=== PATIENT | female | born 1965 | race African-American/Black ===

== ENCOUNTER 2018-01-17 14:32 | Inpatient (IN) | payer SELFPAY ==
[2018-01-17] VITALS (16 sets, daily range): BP systolic 156–205; BP diastolic 79–145
[~2018-01-17] VITALS: Ht 175.3 cm; Wt 80.4 kg
[~2018-01-17 14:32] MED LIST: AMLO10TA4 PO; ASPI-1079 PO; ATOR20TA PO; HYDR-3927 GT; HYDR25TA PO; LISI-604 PO; MECL-109 PO
[2018-01-17 15:18] LABS: BASOPHILS % 0.7 % (0.0-2.0); EOSINOPHILS % 0.3 % (0.0-5.0); HEMATOCRIT. 40.8 % (36.0-48.0); HEMOGLOBIN. 14.1 g/dL (12.0-16.0); LYMPHOCYTES % 16.2 % (20.0-50.0); MEAN CORPUSCULAR HEMOGLOBIN 28.2 pg (28.0-32.0); MEAN CORPUSCULAR VOLUME 81.6 fL (81.0-99.0); MEAN PLATELET VOLUME 7.7 fl (7.4-10.4); MONOCYTES % 4.8 % (2.0-8.0); PLATELET 302 x1000/uL (130-400); RED CELL DISTRIBUTION WIDTH 13.1 % (11.6-14.6)
[2018-01-17 15:19] LABS: CHLORIDE 108 mEq/L (98-107)
[2018-01-17 15:20] LABS: PROTHROMBIN TIME 10.3 sec (9.4-11.6)
[2018-01-17 15:21] LABS: CLARITY URINE CLEAR (CLEAR); COLOR URINE YELLOW (YELLOW); KETONES URINE NEGATIVE (NEGATIVE); LEUKOCYTE ESTERASE URINE NEGATIVE (NEGATIVE); NITRITE URINE NEGATIVE (NEGATIVE); OCCULT BLOOD URINE TRACE (NEGATIVE); PH URINE 5.5 (4.5-8.0); PROTEIN URINE 1+ (NEGATIVE); SPECIFIC GRAVITY URINE 1.011 (1.005-1.030); UROBILINOGEN URINE 0.2 E.U./dL (0.2-1.0)
[2018-01-17 15:22] LABS: ETHANOL BLOOD < 10 mg/dL
[2018-01-17 15:43] LABS: *AMPHETAMINES SCREEN URINE NEGATIVE (NEGATIVE); *BARBITURATES SCREEN URINE NEGATIVE (NEGATIVE); METHADONE URINE SCREEN NEGATIVE (NEGATIVE); OPIATES URINE SCREEN NEGATIVE (NEGATIVE); PHENCYCLIDINE URINE SCREEN NEGATIVE (NEGATIVE)
[2018-01-17 15:44] LABS: *BENZODIAZEPINES SCREEN URINE NEGATIVE (NEGATIVE); *COCAINE SCREEN URINE NEGATIVE (NEGATIVE); CANNABINOID URINE SCREEN PRESUMTIVE POSITIVE (NEGATIVE)
[2018-01-17] MEDS ORDERED: NICARDIPINE 40MG/200ML PREMIX 200 ML IV PRN (17:30)
[2018-01-17] MEDS ORDERED: MANNITOL 20% (20GM/100ML) BAG 500ML PREMIX IV ONE (17:45)
[2018-01-17] MEDS ORDERED: PHENYTOIN SODIUM 500 MG in SODIUM CHLORIDE 0.9% 50 ML IV ONE (17:45)
[2018-01-17] MEDS ORDERED: DEXT 5%/LACTATED RINGERS 1,000 ML IV SCH ×2 (18:39→21:30)
[2018-01-17] MEDS ORDERED: ACETAMINOPHEN 650MG SUPP PR PRN (18:45)
[2018-01-17] MEDS ORDERED: DIPHENHYDRAMINE 50MG/ML VIAL IV PRN (18:45)
[2018-01-17] MEDS ORDERED: IPRATROPIUM/ALBUTEROL 0.5-3(2.5)MG/3ML NEB INH PRN (18:45)
[2018-01-17] MEDS ORDERED: ONDANSETRON HCL 4MG/2ML VIAL IV PRN (18:45)
[2018-01-17] MEDS ORDERED: NITROGLYCERIN 0.4MG TABLET SL SL PRN (18:45)
[2018-01-17] MEDS: FAMOTIDINE 20MG/2ML VIAL IV SCH (22:17)
[2018-01-17] MEDS: PHENYTOIN SODIUM 100MG/2ML VIAL IV SCH (22:17)
[2018-01-17] MEDS: NICARDIPINE 100 MG in SODIUM CHLORIDE 0.9% 60 ML IV PRN (22:20)
[2018-01-17] MEDS ORDERED: NICARDIPINE 100 MG in SODIUM CHLORIDE 0.9% 60 ML IV PRN (22:30)
[2018-01-17] MEDS ORDERED: POTASSIUM CHLORIDE INJ 20 MEQ in SODIUM CHLORIDE 0.9% 100 ML IV NR (22:30)
[2018-01-18] VITALS (95 sets, daily range): BP systolic 85–232; BP diastolic 31–151
[2018-01-18] MEDS: DEXAMETHASONE 4MG/ML 1ML VIAL IV SCH ×4 (00:38→18:19)
[2018-01-18] MEDS: PHENYTOIN SODIUM 100MG/2ML VIAL IV SCH (05:00)
[2018-01-18] MEDS: NICARDIPINE 100 MG in SODIUM CHLORIDE 0.9% 60 ML IV PRN ×2 (07:26→14:20)
[2018-01-18] MEDS: FAMOTIDINE 20MG/2ML VIAL IV SCH ×2 (08:23→21:46)
[2018-01-18] MEDS: HYDRALAZINE 20MG/ML VIAL IV PRN (11:31)
[2018-01-18] MEDS ORDERED: LABETALOL 5MG/ML SYR 20 MG/4 ML SYRINGE IV PRN (12:00)
[2018-01-18] MEDS: PHENYTOIN SODIUM EXTENDED 100MG CAPSULE PO SCH ×2 (13:56→21:51)
[2018-01-18] MEDS: AMLODIPINE 10MG TABLET PO SCH (14:20)
[2018-01-18] MEDS: HYDRALAZINE HCL 50MG TABLET PO SCH ×2 (15:59→21:52)
[2018-01-18] MEDS: LISINOPRIL 20MG TABLET PO SCH (21:49)
[2018-01-18] MEDS: METOPROLOL TARTRATE 100MG TABLET PO SCH (21:50)
[2018-01-19] VITALS (69 sets, daily range): BP systolic 80–172; BP diastolic 51–111
[2018-01-19 05:29] LABS: BASOPHILS % 0.1 % (0.0-2.0); HEMATOCRIT. 42.1 % (36.0-48.0); HEMOGLOBIN. 14.4 g/dL (12.0-16.0); LYMPHOCYTES % 11.9 % (20.0-50.0); MEAN CORPUSCULAR HEMOGLOBIN 28.1 pg (28.0-32.0); MEAN CORPUSCULAR VOLUME 82.4 fL (81.0-99.0); PLATELET 346 x1000/uL (130-400); RED BLOOD CELL COUNT 5.11 mill/uL (4.2-5.4); RED CELL DISTRIBUTION WIDTH 13.3 % (11.6-14.6)
[2018-01-19 05:58] LABS: CHLORIDE 105 mEq/L (98-107)
[2018-01-19] MEDS: DEXAMETHASONE 4MG/ML 1ML VIAL IV SCH (07:16)
[2018-01-19] MEDS: PHENYTOIN SODIUM EXTENDED 100MG CAPSULE PO SCH ×3 (07:16→21:39)
[2018-01-19] MEDS: HYDRALAZINE HCL 50MG TABLET PO SCH ×3 (07:20→21:40)
[2018-01-19] MEDS: HYDRALAZINE 20MG/ML VIAL IV PRN ×2 (07:59→18:07)
[2018-01-19] MEDS: FAMOTIDINE 20MG/2ML VIAL IV SCH ×2 (08:27→21:35)
[2018-01-19] MEDS: AMLODIPINE 10MG TABLET PO SCH (08:28)
[2018-01-19] MEDS: LISINOPRIL 20MG TABLET PO SCH ×2 (08:28→21:36)
[2018-01-19] MEDS: METOPROLOL TARTRATE 100MG TABLET PO SCH ×2 (08:28→21:37)
[2018-01-19] MEDS ORDERED: ATORVASTATIN CALCIUM 40MG TABLET PO SCH (21:00)
[2018-01-20] VITALS (10 sets, daily range): BP systolic 110–144; BP diastolic 59–91
[2018-01-20] MEDS: HYDRALAZINE HCL 50MG TABLET PO SCH ×2 (05:37→14:08)
[2018-01-20] MEDS: PHENYTOIN SODIUM EXTENDED 100MG CAPSULE PO SCH ×2 (05:39→14:07)
[2018-01-20 07:34] LABS: BASOPHILS % 0.3 % (0.0-2.0); EOSINOPHILS % 0.1 % (0.0-5.0); HEMATOCRIT. 41.2 % (36.0-48.0); HEMOGLOBIN. 13.9 g/dL (12.0-16.0); MEAN CORPUSCULAR HEMOGLOBIN 27.7 pg (28.0-32.0); MEAN CORPUSCULAR VOLUME 82.5 fL (81.0-99.0); MEAN PLATELET VOLUME 7.7 fl (7.4-10.4); MONOCYTES % 7.3 % (2.0-8.0); NEUTROPHILS % 58.3 % (40.0-76.0); PLATELET 332 x1000/uL (130-400); RED CELL DISTRIBUTION WIDTH 13.3 % (11.6-14.6)
[2018-01-20] MEDS: AMLODIPINE 10MG TABLET PO SCH (08:53)
[2018-01-20] MEDS: METOPROLOL TARTRATE 100MG TABLET PO SCH (08:53)
[2018-01-20] MEDS: LISINOPRIL 20MG TABLET PO SCH (08:53)
[2018-01-20 09:02] LABS: CHLORIDE 105 mEq/L (98-107)
[2018-01-20] MEDS ORDERED: FAMOTIDINE 20MG TABLET PO SCH (09:30)
[2018-01-20] MEDS ORDERED: POTASSIUM CHLORIDE 20MEQ TABLET SR PO SCH (12:45)
== END 2018-01-20 18:35 | disposition home or self-care (01) | DRG 44 ==
LOC: ER 15:42 → EDBEDREQ 17:53 → EDBEDREQSVC 17:53 → EDBEDREQTM 17:53 → ENRESERV 18:57 → MICUSO 21:03 → 5WST 01-20 02:11
PROVIDERS: ADMIT Internal Medicine; ATTEND Internal Medicine
DX: I61.0 Nontraumatic intracerebral hemorrhage in hemisphere, subcortical (principal); I10 Essential (primary) hypertension; E78.5 Hyperlipidemia, unspecified; E78.00 Pure hypercholesterolemia, unspecified; E87.6 Hypokalemia; F12.10 Cannabis abuse, uncomplicated; Z91.14 Patient's other noncompliance with medication regimen
CPT/HCPCS: 36415; 70450; 71045; 80048; 80053; 80061; 80305; 81003; 83036; 84484; 85025; 85610; 93005; 93970; 96365; 96375; 97110; 97116; 97162; 97165; 97535; 99291; C1893; G0482; J0360; J1100; J1165; J3480; J3490; J7050

== ENCOUNTER 2019-06-28 15:45 | Emergency (ER) | payer MEDICAID ==
[~2019-06-28] VITALS: Ht 175.3 cm; Wt 84.0 kg
[2019-06-28 16:01] VITALS: BP 116/68
== END 2019-06-28 18:45 | disposition home or self-care (01) ==
LOC: ER 15:45
DX: G57.92 Unspecified mononeuropathy of left lower limb (principal); Z86.73 Personal history of transient ischemic attack (TIA), and cerebral infarction without residual deficits; F12.90 Cannabis use, unspecified, uncomplicated
CPT/HCPCS: 99282

== ENCOUNTER 2019-11-18 16:25 | Emergency (ER) | payer MEDICAID ==
[~2019-11-18] VITALS: Ht 175.3 cm; Wt 88.0 kg
[~2019-11-18 16:25] MED LIST changes: -MECL-109 PO; +MECL-159 PO
[2019-11-18 21:26] VITALS: BP 125/70
== END 2019-11-18 21:26 | disposition home or self-care (01) ==
LOC: ER 16:25
DX: R04.0 Epistaxis (principal); I10 Essential (primary) hypertension; E78.5 Hyperlipidemia, unspecified; Z86.73 Personal history of transient ischemic attack (TIA), and cerebral infarction without residual deficits; F12.90 Cannabis use, unspecified, uncomplicated
CPT/HCPCS: 99283

== ENCOUNTER 2022-12-06 11:48 | Emergency (ER) | payer MEDICAID ==
[~2022-12-06] VITALS: Ht 170.2 cm; Wt 85.0 kg
[~2022-12-06 11:48] MED LIST changes: -LISI-604 PO; +LISI20TA31 PO
[2022-12-06] MEDS ORDERED: LIDOCAINE 5% PATCH TOP SCH (14:00)
[2022-12-06] MEDS ORDERED: ACETAMINOPHEN 325MG TABLET PO ONE (14:00)
[2022-12-06] MEDS ORDERED: ASPIRIN 81MG TABLET PO ONE (14:00)
[2022-12-06 15:42] LABS: CHLORIDE 107 mEq/L (98-107)
[2022-12-06] MEDS ORDERED: ASPIRIN 81MG TABLET PO NR (15:45)
[2022-12-06] MEDS ORDERED: ACETAMINOPHEN 325MG TABLET PO NR (15:45)
[2022-12-06 15:53] LABS: BASOPHILS % 0.4 % (0.0-2.0); EOSINOPHILS % 2.2 % (0.0-5.0); HEMATOCRIT. 42.1 % (36.0-48.0); HEMOGLOBIN. 14.1 g/dL (12.0-16.0); LYMPHOCYTES % 41.1 % (20.0-50.0); MEAN CORPUSCULAR HEMOGLOBIN 27.8 pg (28.0-32.0); MEAN CORPUSCULAR VOLUME 82.9 fL (81.0-99.0); MEAN PLATELET VOLUME 7.3 fl (7.4-10.4); MONOCYTES % 5.9 % (2.0-8.0); NEUTROPHILS % 50.4 % (40.0-76.0); PLATELET 386 x1000/uL (130-400); RED BLOOD CELL COUNT 5.07 mill/uL (4.2-5.4)
[2022-12-06] MEDS ORDERED: LIDO700A30 TP (16:04)
[2022-12-06] MEDS ORDERED: IBUP-2028 MT (16:04)
[2022-12-06] MEDS ORDERED: ACET-2708 MT (16:04)
[2022-12-06 16:07] VITALS: BP 129/69
== END 2022-12-06 16:29 | disposition home or self-care (01) ==
LOC: ER 11:48
DX: M25.511 Pain in right shoulder (principal); E78.00 Pure hypercholesterolemia, unspecified; I10 Essential (primary) hypertension; Z86.73 Personal history of transient ischemic attack (TIA), and cerebral infarction without residual deficits; F12.10 Cannabis abuse, uncomplicated; Z79.899 Other long term (current) drug therapy
CPT/HCPCS: 36415; 73030; 80053; 83880; 84484; 85025; 93005; 99285; Z7610; A4565

== ENCOUNTER 2024-07-16 10:03 | Emergency (ER) | payer MEDICAID ==
[~2024-07-16] VITALS: Ht 167.6 cm; Wt 85.0 kg
[~2024-07-16 10:03] MED LIST changes: +ACET-2708 MT; +IBUP-2028 MT; +LIDO700A30 TP; -MECL-159 PO; +MECL-299 PO
[2024-07-16 10:06] VITALS: O2SAT 98
[2024-07-16] MEDS: SODIUM CHLORIDE 0.9% 1,000 ML IV ONE (10:41)
[2024-07-16 11:01] LABS: BASOPHILS % 0.5 % (0.0-2.0); EOSINOPHILS % 1.5 % (0.0-5.0); HEMATOCRIT. 39.9 % (36.0-48.0); HEMOGLOBIN. 13.4 g/dL (12.0-16.0); LYMPHOCYTES % 25.8 % (20.0-50.0); MEAN CORPUSCULAR HGB CONC 33.6 g/dL (31.0-37.0); MEAN CORPUSCULAR VOLUME 83.2 fL (81.0-99.0); MEAN PLATELET VOLUME 7.6 fl (7.4-10.4); NEUTROPHILS % 68.2 % (40.0-76.0); PLATELET 310 x1000/uL (130-400); RED CELL DISTRIBUTION WIDTH 13.1 % (11.6-14.6); WHITE BLOOD COUNT 7.2 x1000/uL (4.5-11.0)
[2024-07-16 11:09] LABS: CHLORIDE 106 mEq/L (98-107); POTASSIUM 3.8 mEq/L (3.5-5.1); SODIUM 140 mEq/L (136-145)
[2024-07-16 11:10] LABS: CALCIUM 10.1 mg/dL (8.7-10.4); CARBON DIOXIDE 26 mEq/L (21-32)
[2024-07-16 11:13] LABS: CLARITY URINE CLEAR (CLEAR); COLOR URINE YELLOW (YELLOW); GLUCOSE URINE NEGATIVE (NEGATIVE); KETONES URINE NEGATIVE (NEGATIVE); LEUKOCYTE ESTERASE URINE NEGATIVE (NEGATIVE); NITRITE URINE NEGATIVE (NEGATIVE); OCCULT BLOOD URINE NEGATIVE (NEGATIVE); PROTEIN URINE 2+ (NEGATIVE); SPECIFIC GRAVITY URINE 1.011 (1.005-1.030); UROBILINOGEN URINE 0.2 E.U./dL (0.2-1.0)
[2024-07-16 11:15] LABS: CREATININE 1.1 mg/dL (0.6-1.0); GLUCOSE 160 mg/dL (70-105); UREA NITROGEN BLOOD 14 mg/dL (9-23)
[2024-07-16 11:20] LABS: TROPONIN I HIGH SENSITIVITY 7 ng/L (3.0-34)
[2024-07-16 11:25] LABS: BACTERIA URINE TRACE; MUCUS URINE TRACE /lpf (< = 2+); RBC URINE 0-2 /hpf (0-2); SQUAMOUS EPITHELIAL CELL URINE RARE /lpf (RARE/1+)
[2024-07-16 11:27] LABS: WBC URINE NONE SEEN /hpf (0-2)
[2024-07-16] MEDS: LORAZEPAM 1MG TABLET PO ONE (12:21)
[2024-07-16] MEDS: ASPIRIN 81MG TABLET PO ONE (13:36)
[2024-07-16 16:26] VITALS: BP 128/73; PULSE 88; RESP 16; TEMP 36.94740; O2SAT 98
== END 2024-07-16 16:28 | disposition left against medical advice (07) ==
LOC: ER 10:03 → CANBEDREQ 14:11 → ER 16:28
DX: R53.1 Weakness (principal); F12.10 Cannabis abuse, uncomplicated; E78.00 Pure hypercholesterolemia, unspecified; Z79.82 Long term (current) use of aspirin; Z98.890 Other specified postprocedural states; Z79.899 Other long term (current) drug therapy; Z86.73 Personal history of transient ischemic attack (TIA), and cerebral infarction without residual deficits
CPT/HCPCS: 80048; 81003; 85025; 84484; 36415; 71045; 70450; 93005; 96360; 99285; Z7610 ×3; J7030